=== PATIENT | male | born 1950 | race Caucasian/White ===

== ENCOUNTER 2020-08-14 16:14 | Emergency (ER) | payer BC, OTHER ==
[2020-08-14] MEDS ORDERED: HYDROcodone/Acetaminophen 5/325 mg Tablet ONE (16:50)
[2020-08-14] MEDS ORDERED: Boostrix 0.5 ML (Tdap) VIAL ONE (17:38)
== END 2020-08-14 17:54 | disposition home or self-care (01) ==
LOC: MADERS 16:14
DX: S60.221A Contusion of right hand, initial encounter (principal); I10 Essential (primary) hypertension; Z79.899 Other long term (current) drug therapy; W22.8XXA Striking against or struck by other objects, initial encounter
CPT/HCPCS: 90471; 90715